=== PATIENT | female | born 1940 | race African-American/Black ===

== ENCOUNTER 2023-03-03 09:41 | Emergency (ER) | payer MEDICARE, MEDICAID ==
[~2023-03-03] VITALS: Ht 170.2 cm; Wt 73.0 kg
[2023-03-03] MEDS ORDERED: VALA100044 MT (10:44)
[2023-03-03] MEDS ORDERED: ACET-2708 MT (10:44)
[2023-03-03 11:05] VITALS: BP 127/86
== END 2023-03-03 11:08 | disposition home or self-care (01) ==
LOC: ER 09:41
DX: B02.9 Zoster without complications (principal)
CPT/HCPCS: 99283

== ENCOUNTER 2025-07-31 15:01 | Emergency (ER) | payer MEDICARE, MEDICAID ==
[~2025-07-31] VITALS: Ht 170.2 cm; Wt 62.7 kg
[~2025-07-31 15:01] MED LIST: ACET-2708 MT; VALA100044 MT
[2025-07-31 15:05] VITALS: O2SAT 100
[2025-07-31 16:18] LABS: BASOPHILS % 0.5 % (0.0-2.0); EOSINOPHILS % 1.5 % (0.0-5.0); HEMATOCRIT. 39.0 % (36.0-48.0); HEMOGLOBIN. 12.6 g/dL (12.0-16.0); LYMPHOCYTES % 28.9 % (20.0-50.0); MEAN PLATELET VOLUME 9.1 fl (7.4-10.4); MONOCYTES % 12.6 % (2.0-8.0); NEUTROPHILS % 56.5 % (40.0-76.0); PLATELET 196 x1000/uL (130-400); RED BLOOD CELL COUNT 4.83 mill/uL (4.2-5.4); RED CELL DISTRIBUTION WIDTH 14.3 % (11.6-14.6)
[2025-07-31 16:29] LABS: CREATININE 1.0 mg/dL (0.6-1.0); UREA NITROGEN BLOOD 12 mg/dL (9-23)
[2025-07-31] MEDS: FLUORESCEIN SODIUM 1MG/STRIP RIGHTEYE ONE (16:29)
[2025-07-31] MEDS: TETRACAINE 0.5% OPHTH DROPS 4ML RIGHTEYE ONE (16:30)
[2025-07-31 16:31] LABS: ASPARTATE AMINOTRANSFERASE 22 IU/L (<34); BILIRUBIN DIRECT 0.2 mg/dL (<=3.0); BILIRUBIN TOTAL 0.8 mg/dL (0.1-1.0); PROTEIN TOTAL 8.0 g/dL (6.0-8.3)
[2025-07-31] MEDS: BRIMONIDINE 0.2% OPHTH DROPS 5ML RIGHTEYE ONE (17:19)
[2025-07-31] MEDS: TIMOLOL MALEATE 0.5% OPHTH DROPS 5ML RIGHTEYE SCH (17:19)
[2025-07-31] MEDS: PILOCARPINE HCL 1% OPHTH DROPS 15ML RIGHTEYE SCH (17:19)
[2025-07-31] MEDS: ACETAZOLAMIDE 500MG ER CAPSULE PO ONE (17:19)
[2025-07-31] MEDS: DORZOLAMIDE 2% OPHTH 10 ML BOTTLE RIGHTEYE SCH (17:19)
[2025-07-31] MEDS ORDERED: ACET500C47 PO (17:53)
[2025-07-31 18:28] VITALS: BP 165/123; PULSE 89; RESP 16; TEMP 37; O2SAT 99
== END 2025-07-31 18:30 | disposition home or self-care (01) ==
LOC: ER 15:01 → CANBEDREQ 18:08 → ER 18:30
DX: H40.219 Acute angle-closure glaucoma, unspecified eye (principal); I10 Essential (primary) hypertension; Z86.73 Personal history of transient ischemic attack (TIA), and cerebral infarction without residual deficits; Z79.899 Other long term (current) drug therapy
CPT/HCPCS: 36415; 80048; 80076; 80320; 85025; 93005; 99284; G0480